=== PATIENT | female | born 1995 | race American Indian/Alaskan Native ===

== ENCOUNTER 2018-09-11 10:46 | Emergency (ER) | payer SELFPAY ==
[2018-09-11 10:46] VITALS: BMI 23.0
[2018-09-11 10:56] VITALS: BP 123/72; PULSE 90; RESP 16; TEMP 98.3; O2SAT 98
--- NOTE | 2018-09-11 11:47 | C.PDOC ---
History Of Present Illness 22 y/o female presents to the ER complaining of white spots on her throat. Patient states that she was diagnosed with strep throat and she was treated with Bicillin injection at a medical center. Patient reports that the throat pain and swelling has improved. However, she still sees white spots on her throat prompting her visit to the ER. Denies having throat pain, throat swelling, fever, and chills. Her second complaint is vaginal discharged and irritation x 2-3 days. she is sexually active with 1 male partner unprotected. she has history of trichomonas infection in the past that was treated. Time Seen by Provider: 09/11/18 11:10 Chief Complaint (Nursing): ENT Problem History Per: Patient History/Exam Limitations: no limitations Onset/Duration Of Symptoms: Days Current Symptoms Are (Timing): Still Present Severity: Moderate Past Medical History Reviewed: Historical Data, Nursing Documentation, Vital Signs Vital Signs: Last Vital Signs Temp 98.3 F 09/11/18 10:53 Pulse 90 09/11/18 10:53 Resp 16 09/11/18 10:53 BP 123/72 09/11/18 10:53 Pulse Ox 98 09/11/18 10:53 - Medical History PMH: No Chronic Diseases Surgical History: No Surg Hx Family History: States: No Known Family Hx - Social History Hx Alcohol Use: No Hx Substance Use: No Review Of Systems Constitutional: Negative for: Fever, Chills, Weakness Eyes: Positive for: Other ((-)scleral icterus). Negative for: Redness ENT: Positive for: Other (white spots on throat). Negative for: Mouth Swelling, Throat Pain, Throat Swelling Cardiovascular: Negative for: Chest Pain Respiratory: Negative for: Cough, Shortness of Breath Gastrointestinal: Negative for: Nausea, Vomiting, Abdominal Pain, Diarrhea Genitourinary: Positive for: Vaginal Discharge. Negative for: Dysuria, Hematuria Musculoskeletal: Negative for: Back Pain Skin: Negative for: Rash Neurological: Negative for: Weakness, Numbness, Dizziness Physical Exam - Physical Exam Appears: Non-toxic, No Acute Distress Skin: Normal Color, Warm, Dry Head: Atraumatic, Normacephalic Eye(s): bilateral: Normal Inspection Ear(s): Bilateral: Normal Nose: Normal Oral Mucosa: Moist Throat: No Erythema, No Exudate, Other (mild enlarged tonsils, patent airway) Neck: Supple Chest: Symmetrical Cardiovascular: Rhythm Regular Respiratory: Normal Breath Sounds, No Rales, No Rhonchi, No Wheezing Pelvic: Vaginal Discharge (copious yellowish discharge), No Cervical Motion Tenderness, No Adnexal Tenderness, No Tender Uterus, Other (chaperoned by nurse Meli) Neurological/Psych: Oriented x3, Normal Speech ED Course And Treatment O2 Sat by Pulse Oximetry: 98 (RA) Pulse Ox Interpretation: Normal Progress Note: flagyl rx sent to the patient's pharmacy of choice. Medical Decision Making Medical Decision Making: Plan: --Labs --Rapid Strep Test --Rocephin IM --Zithromax PO Disposition Counseled Patient/Family Regarding: Studies Performed, Diagnosis, Need For Followup - Disposition Referrals: [facility] [Outside] Disposition: HOME/ ROUTINE Disposition Time: 12:47 Condition: STABLE Additional Instructions: SHAHID PARIS, thank you for letting us take care of you today. Your provider was Neha Perera MD and you were treated for THROAT PAIN. The emergency medical care you received today was directed at your acute symptoms. If you were prescribed any medication, please fill it and take as directed. It may take several days for your symptoms to resolve. Return to the Emergency Department if your symptoms worsen, do not improve, or if you have any other problems. Please contact your doctor or call one of the physicians/clinics you have been referred to that are listed on the Patient Visit Information form that is included in your discharge packet. Bring any paperwork you were given at discharge with you along with any medications you are taking to your follow up visit. Our treatment cannot replace ongoing medical care by a primary care provider outside of the emergency department. Thank you for allowing the [facility] team to be part of your care today. Instructions: Vaginal Discharge in Adults Forms: [employer] [facility] (Burmese), General Discharge Instructions - Clinical Impression Clinical Impression: Vaginal discharge - PA / [employer] / Resident Statement MD/DO has reviewed & agrees with the documentation as recorded. - Scribe Statement The provider has reviewed the documentation as recorded by the Tommy Tao Provider Attestation All medical record entries made by the Scribe were at my direction and personally dictated by me. I have reviewed the chart and agree that the record accurately reflects my personal performance of the history, physical exam, medical decision making, and the department course for this patient. I have also personally directed, reviewed, and agree with the discharge instructions and disposition.
[2018-09-11] MEDS ORDERED: cefTRIAXone (Rocephin) 250 mg Inj IM STA (12:43)
== END 2018-09-11 13:10 | disposition home or self-care (01) ==
LOC: C.ER 10:46
DX: N89.8 Other specified noninflammatory disorders of vagina (principal)
CPT/HCPCS: 87070; 87430; 87491; 87591; 96372; 99284; J0696